=== PATIENT | male | born 1990 | race Caucasian/White ===

== ENCOUNTER 2021-04-22 18:39 | Inpatient (IN) | payer OTHER ==
[~2021-04-22] VITALS: Ht 175.3 cm; Wt 66.4 kg
--- NOTE | 2021-04-22 19:15 | NUR ---
PATIENT C/O ABDOMINAL PAIN FOR THE PAST 3 DAYS WITH DIARRHEA. PATIENT IS HIV +, NEGATIVE OFF MEDICATION FOR ONE YEAR, Hx OF DRUG USE AND METH +. PATIENT IS A/O X 4, RR EVEN AND UNLABORED, NO SIGNS OF SOB NOTED. PATIENT CONNECTED TO CARDIAC AND POX MONITOR.
[2021-04-22] MEDS ORDERED: MORPHINE SULFATE INJ 4 MG/ML DISP.SYRIN ONE (19:21)
[2021-04-22] MEDS ORDERED: ONDANSETRON HCL/PF 4 MG/2 ML VIAL ONE (19:21)
[2021-04-22] MEDS ORDERED: IV NS 0.9% 1,000 ML BAG IV ONE ×3 (19:30→20:30)
[2021-04-22] MEDS ORDERED: MORPHINE SULFATE INJ 2 MG/ML DISP.SYRIN IV ONE (19:30)
[2021-04-22] MEDS ORDERED: ONDANSETRON HCL/PF 4 MG/2 ML VIAL IVP ONE (19:30)
--- NOTE | 2021-04-22 19:36 | NUR ---
CALLED FOR COVID SWAB
[2021-04-22 19:41] LABS: BASOPHILS # (AUTO) 0.1 K/uL (0.0-0.2); BASOPHILS % (AUTO) 0.4 % (0.0-2.0); HEMATOCRIT 45 % (39-51); HEMOGLOBIN 15.9 g/dL (13.5-17.5); LYMPHOCYTES # (AUTO) 1.4 K/uL (0.8-4.8); LYMPHOCYTES % (AUTO) 6.5 % (20.0-44.0); MEAN CORPUSCULAR HGB CONC 35 g/dl (31.0-36.0); MEAN CORPUSCULAR VOLUME 79 fL (80-96); MONOCYTES # (AUTO) 3.7 K/uL (0.1-1.30); MONOCYTES % (AUTO) 16.8 % (2.0-12.0); NEUTROPHILS # (AUTO) 16.8 K/uL (1.8-8.9); NEUTROPHILS % (AUTO) 76.3 % (43.0-81.0); PLATELET COUNT (AUTO) 377 K/uL (150-450); RED BLOOD CELL COUNT(AUTO) 5.71 MIL/uL (4.5-6.0)
--- NOTE | 2021-04-22 19:45 | NUR ---
COVID SWAB COLLECTED AND SENT TO LAB
[2021-04-22 19:56] LABS: CALCIUM, SERUM 8.7 mg/dL (8.5-10.1); CREATININE 1.2 mg/dL (0.6-1.3); POTASSIUM 3.9 mmol/L (3.5-5.1)
[2021-04-22 20:01] LABS: ALBUMIN 3.8 g/dL (3.4-5.0); BILIRUBIN,DIRECT 0.2 mg/dL (0.0-0.2); BILIRUBIN,TOTAL 1.1 mg/dL (0.2-1.0)
[2021-04-22 20:18] LABS: BAND % (MANUAL) 14 % (0.0-5.0); LYMPHOCYTES % (MANUAL) 6 % (16-48); MONOCYTES % (MANUAL) 16 % (0-11.0); NEUTROPHILS % (MANUAL) 63 (42-76); REACTIVE LYMPHOCYTES 1 % (0-0)
--- NOTE | 2021-04-22 20:20 | NUR ---
URINE COLELCTED AND SENT TO LAB
[2021-04-22] MEDS ORDERED: IOHEXOL-300 100 ML VIAL IV ONE (20:24)
[2021-04-22] MEDS ORDERED: IV NS 0.9% 250 ML IV ONE (20:24)
[2021-04-22] MEDS ORDERED: VANCOMYCIN 1 GM in IV D5W 250 ML IV ONE (20:30)
[2021-04-22] MEDS ORDERED: CEFEPIME 1 GM in IV D5W 50 ML IV ONE (20:30)
[2021-04-22 20:51] LABS: BILIRUBIN,URINE MODERATE (NEGATIVE); COLOR,URINE YELLOW (YELLOW); LEUKOCYTE ESTERASE ,URINE Negative (NEGATIVE); NITRITE, URINE Negative (NEGATIVE); PH,URINE 5.5 (5.0-8.0); PROTEIN,URINE 30 mg/dl (NEGATIVE); UGLUCOSE Negative (NEGATIVE); UROBILINOGEN,URINE 0.2 EU/dL (0.2)
[2021-04-22 20:53] LABS: BACTERIA,URINE Rare /HPF (None Seen); RBC,URINE NONE SEEN /HPF (0-2); SQUAMOUS EPITHELIAL CELL,UR Few /HPF (None Seen); WBC,URINE NONE SEEN /HPF (0-3)
[2021-04-22] MEDS ORDERED: CEFEPIME 1 GM VIAL ONE (20:59)
[2021-04-22] MEDS ORDERED: VANCOMYCIN 1 GM VIAL ONE (20:59)
[2021-04-22] MEDS ORDERED: ACETAMINOPHEN ES 500 MG TABLET PO ONE (21:30)
[2021-04-22] MEDS ORDERED: FLAGYL/NS RTU 500 MG/100 ML PIGGYBACK IV ONE (21:30)
[2021-04-22] MEDS ORDERED: ACETAMINOPHEN ES 500 MG TABLET ONE (21:35)
[2021-04-22] MEDS ORDERED: METRONIDAZOLE 500MG/ NS 100ML 100 ML IV ONE (21:43)
[2021-04-22] MEDS ORDERED: LORAZEPAM INJ 2 MG/ML VIAL IV ONE (23:00)
[2021-04-22] MEDS ORDERED: IBUPROFEN 600 MG TABLET PO ONE (23:00)
--- NOTE | 2021-04-22 23:05 | NUR ---
ER DIANNA SPOKE TO ARJUN FUNEZ FROM [facility] REGARDING PT BEING ADMITTED.
--- NOTE | 2021-04-22 23:06 | NUR ---
STOOL SAMPLE COLLECTED, SENT TO LAB.
--- NOTE | 2021-04-22 23:07 | NUR ---
RECIEVED VERBAL FOR ADMISSION
[2021-04-22] MEDS ORDERED: IBUPROFEN 600 MG TABLET ONE (23:19)
[2021-04-22] MEDS ORDERED: LORAZEPAM INJ 2 MG/ML VIAL ONE (23:19)
--- NOTE | 2021-04-22 23:21 | NUR ---
CALLED [facility], PAGED SUPERVISOR PIPELINE MAINTENANCE
[2021-04-23] MEDS ORDERED: Z GUARD REMEDY 2 OZ OINT TP PRN
[2021-04-23] MEDS ORDERED: MAG HYDROX/AL HYDROX/SIMETH 30 ML UDC PO PRN
[2021-04-23] MEDS ORDERED: MAGNESIUM HYDROXIDE 30 ML UDC PO PRN
[2021-04-23] MEDS ORDERED: ZOLPIDEM TARTRATE 5 MG TABLET PO PRN
[2021-04-23] MEDS ORDERED: ONDANSETRON HCL/PF 4 MG/2 ML VIAL IVP PRN
[2021-04-23] MEDS ORDERED: MAG HYDROX/AL HYDROX/SIMETH 30 ML UDC PO ONE (01:00)
--- NOTE | 2021-04-23 02:22 | NUR ---
temp rechecked, resulted 98.9 deg
--- NOTE | 2021-04-23 03:45 | NUR ---
Patient sleeping rouses to loud voice or light touch. VSS. Had large loose watery BM greenish. Bowel sounds hyperactive. Slight tenderness to abdomen. Put in for SS and CM consult d/t homelessness and lack of access to housing, transportation, and mental health services and hx of drug abuse. IVF started. Oriented patient to unit, call light, protocols. Safety measures in place. BSC to bedside because patient is weak can use with assist. Only skin issues are scab to R shoulder and scan to RFA.
--- NOTE | 2021-04-23 03:47 | NUR ---
REPORT GIVEN TO ANKUR DAWSON
[2021-04-23 04:00] VITALS: BP 116/64
--- NOTE | 2021-04-23 04:01 | NUR ---
PATIENT TRANSFERRED UNDER ACLS
[2021-04-23] MEDS: IV D5/ 0.9% NACL 1,000 ML IV SCH ×3 (04:55→15:35)
[2021-04-23] MEDS ORDERED: METRONIDAZOLE 500MG/ NS 100ML 100 ML IV ONE (05:33)
[2021-04-23] MEDS ORDERED: METRONIDAZOLE 500MG/ NS 100ML 500 MG in PREMIX 1 EA IV SCH (06:00)
[2021-04-23 06:16] LABS: BASOPHILS # (AUTO) 0.1 K/uL (0.0-0.2); BASOPHILS % (AUTO) 0.6 % (0.0-2.0); EOSINOPHILS % (AUTO) 0.6 % (0.0-6.0); HEMATOCRIT 42 % (39-51); HEMOGLOBIN 14.9 g/dL (13.5-17.5); LYMPHOCYTES # (AUTO) 1.8 K/uL (0.8-4.8); LYMPHOCYTES % (AUTO) 10.9 % (20.0-44.0); MEAN CORPUSCULAR HGB CONC 36 g/dl (31.0-36.0); MEAN CORPUSCULAR VOLUME 79 fL (80-96); MONOCYTES # (AUTO) 2.6 K/uL (0.1-1.30); MONOCYTES % (AUTO) 16.5 % (2.0-12.0); NEUTROPHILS # (AUTO) 11.4 K/uL (1.8-8.9); NEUTROPHILS % (AUTO) 71.4 % (43.0-81.0); PLATELET COUNT (AUTO) 321 K/uL (150-450); RED BLOOD CELL COUNT(AUTO) 5.29 MIL/uL (4.5-6.0)
[2021-04-23 06:38] LABS: CALCIUM, SERUM 7.6 mg/dL (8.5-10.1); CREATININE 0.8 mg/dL (0.6-1.3); MAGNESIUM 1.5 mg/dL (1.8-2.4); PHOSPHORUS 3.7 mg/dL (2.5-4.9); POTASSIUM 3.5 mmol/L (3.5-5.1)
[2021-04-23 06:49] LABS: THYROID STIMULATING HORMONE 1.036 uIU/mL (0.358-3.74)
--- NOTE | 2021-04-23 07:11 | NUR ---
Patient still sleeping but awakes to light touch or loud name. VSS. Tolerating IV ABX well. Had 2 large watery green BMs. Contact precautions used pending C diff results.
--- NOTE | 2021-04-23 07:15 | NUR ---
RN OPENING NOTE RECEIVED PATIENT IN BED. LETHARGIC. ON ROOM AIR, NO SOB NOTED. IN NO APPARENT DISTRESS. DENIES ANY PAIN OR DISCOMFORT AT THIS TIME. TELE READING SHOWS SR 80s. CURRENTLY ON NPO STATUS. IV ACCESS ON L AC #20 G, AND R AC #18 G, D5NS RUNNING X125 ML/HR, INTACT AND PATENT. SAFETY MEASURES MAINTAINED. BED IN LOWEST POSITION, BRAKES LOCKED. SIDE RAILS UP X2,. CALL LIGHT WITHIN REACH. WILL CONTINUE PLAN OF CARE.
[2021-04-23] MEDS ORDERED: CIPROFLOXACIN IV RTU 400 MG in PREMIX 1 EA IV SCH ×2 (08:00)
[2021-04-23] MEDS: PANTOPRAZOLE 40 MG VIAL IV SCH (08:12)
[2021-04-23 08:21] VITALS: BP 88/60
[2021-04-23] MEDS: Magnesium 1GM/D5W 100ML PREMIX 100 ML IV SCH ×2 (09:38→10:43)
[2021-04-23] MEDS ORDERED: Magnesium 1GM/D5W 100ML PREMIX 100 ML IV SCH (11:00)
[2021-04-23 11:20] LABS: BAND % (MANUAL) 10 % (0.0-5.0); EOSINOPHILS % (MANUAL) 1 % (0-4); LYMPHOCYTES % (MANUAL) 11 % (16-48); MONOCYTES % (MANUAL) 16 % (0-11.0); NEUTROPHILS % (MANUAL) 62 (42-76)
[2021-04-23 12:03] VITALS: BP 92/48
[2021-04-23] MEDS: ZOSYN IVPB 3.375 G in IV D5W 50ml IV SCH ×2 (12:22→17:04)
[2021-04-23] MEDS: VANCOMYCIN 1.25 GM in IV D5W 250 ML IV SCH ×2 (12:22→20:12)
[2021-04-23 16:04] VITALS: BP 107/80
[2021-04-23] MEDS: ENSURE CLEAR 237 ML LIQUID (MIX BERRY) PO SCH (17:09)
--- NOTE | 2021-04-23 18:07 | NUR ---
RN CLOSING NOTE PATIENT IN BED, AWAKE. ON ROOM AIR, SATURATING WELL AT 100 %. NO SOB NOTED. NO S/S OF RESPIRATORY DISTRESS. NO REPORTS OF PAIN OR DISCOMFORT AT THIS TIME. TELE READING SHOWS SR 70 - 80s. IV ACCESS ON L AC #20 G, AND R AC #18 G, D5NS RUNNING X125 ML/HR, INTACT AND PATENT. NO SIGNS OF INFILTRATION. DUE MEDS GIVEN ORDERED. SAFETY MEASURES MAINTAINED. BED IN LOWEST POSITION, BRAKES LOCKED. SIDE RAILS UP X2. KEPT CALL LIGHT WITHIN REACH. WILL ENDORSE CONTINUITY OF CARE TO ONCOMING SHIFT.
[2021-04-23] MEDS: MORPHINE SULFATE INJ 2 MG/ML DISP.SYRIN IV PRN (18:14)
[2021-04-23 20:00] VITALS: BP 105/58
--- NOTE | 2021-04-23 20:00 | NUR ---
WASTE MACHINE OPERATOR OPENING NOTES PT RESTING IN BED, ALERT/ORIENTED X 4, ABLE TO MAKE NEEDS KNOWN. PATIENT STATING HE'S REALLY HUNGRY AND WANTS TO EAT FOOD. PT STABLE ON RA, NO S/S OF DISTRESS OR SOB NOTED, BREATHING EVEN AND UNLABORED. NO REPORTS OF PAIN OR DISCOMFORT AT THIS TIME. PT ON TELE MONITORING, READING SHOWS SINUS TACHY, HR 102. IV ACCESS ON LEFT AC #20G INTACT AND RUNNING D5NS @ 125 ML/HR, RIGHT AC #18G INTACT AND SALINE LOCKED. SAFETY MEASURES IN PLACE: CALL LIGHT WITHIN REACH, BED LOCKED IN LOW POSITION, SIDE RAILS UP X 2. WILL CONTINUE TO MONITOR PATIENT
--- NOTE | 2021-04-23 20:20 | NUR ---
NEWSPAPER COLUMNIST NOTES PT SEEN BY DR. MACKEY AT BEDSIDE WITH NEW ORDER TO ADVANCE DIET TOLERATED. PATIENT STATED HE'S REALLY HUNGRY AND WANTS TO EAT FOOD. DR. MACKEY SAID IT'S OKAY TO GIVE PATIENT SANDWICH. WILL CONTINUE TO MONITOR PATIENT FOR FOOD TOLERANCE. VANCO WAS ALSO DISCONTINUED SO I STOPPED THE BAG OF VANCO THAT WAS RUNNING
[2021-04-23] MEDS: METRONIDAZOLE 500MG/ NS 100ML 500 MG in PREMIX 1 EA IV SCH (21:18)
[2021-04-23] MEDS: CIPROFLOXACIN IV RTU 400 MG in PREMIX 1 EA IV SCH (22:44)
[2021-04-23] MEDS: ACETAMINOPHEN 325 MG TABLET PO PRN (23:53)
--- NOTE | 2021-04-23 23:55 | NUR ---
ENGINEERING FACULTY NOTES PATIENT COMPLAINING OF HEADACHE, TYLENOL 650 MG GIVEN ORDERED. WILL CONTINUE TO MONITOR PATIENT
[2021-04-24] VITALS: BP 90/54
[2021-04-24] MEDS: IV D5/ 0.9% NACL 1,000 ML IV SCH ×3 (00:40→15:35)
[2021-04-24 04:00] VITALS: BP 111/52
[2021-04-24] MEDS: METRONIDAZOLE 500MG/ NS 100ML 500 MG in PREMIX 1 EA IV SCH ×3 (05:21→21:17)
--- NOTE | 2021-04-24 05:30 | NUR ---
MACHINE ENGINEER NOTES PATIENT REFUSED LABS, STATED HE WANTED TO SLEEP AND TO COME BACK LATER. LAB WILL COME BACK LATER TO TAKE LABS
--- NOTE | 2021-04-24 07:38 | NUR ---
CEMENT MASON CLOSING NOTES PATIENT SLEEPING IN BED, PT REMAINED STABLE THROUGHOUT SHIFT. NO S/S OF DISTRESS OR SOB NOTED, BREATHING EVEN AND UNLABORED. MEDICATIONS GIVEN ORDERED, PT NEEDS MET THROUGHOUT SHIFT. PATIENT TOLERATED SANDWICH AND APPLE SAUCE LAST NIGHT, NO NAUSEA, ABDOMINAL PAIN OR DIARRHEA AFTER EATING, ADVANCE DIET TOLERATED. PT HAD ONLY 2 EPISODES OF SOFT/LOOSE GREEN BM. PATIENT ON TELE MONITORING, SINUS RHYTHM. SAFETY MEASURES IN PLACE: CALL LIGHT WITHIN REACH, BED LOCKED IN LOW POSITION, SIDE RAILS UP X 2. WILL ENDORSE TO DAY SHIFT NURSE FOR CONTINUITY OF CARE
--- NOTE | 2021-04-24 08:00 | NUR ---
CONCRETE SWIMMING POOL INSTALLER OPENING NOTE: RECEIVED PATIENT LYING IN BED, RESTING. EASY TO AROUSE. A/O X4. STABLE ON ROOM AIR - NO SOB NOTED. NO DISTRESS/DISCOMFORT NOTED. ON TELE MONITOR - READS SINUS RHYTHM. IV ACCESS TO LEFT AC #18 AND RIGHT AC #18 - BOTH INTACT AND PATENT, LAC RUNNING D5NS @ 125ML/HR. SAFETY MEASURES IN PLACE. CALL LIGHT WITHIN REACH. WILL CONTINUE TO MONITOR.
[2021-04-24] MEDS: PANTOPRAZOLE 40 MG VIAL IV SCH (08:41)
[2021-04-24] MEDS: ENSURE CLEAR 237 ML LIQUID (MIX BERRY) PO SCH ×3 (08:42→16:15)
[2021-04-24] MEDS: CIPROFLOXACIN IV RTU 400 MG in PREMIX 1 EA IV SCH ×2 (09:17→22:28)
[2021-04-24] MEDS: ACETAMINOPHEN 325 MG TABLET PO PRN (12:24)
[2021-04-24 15:42] LABS: CALCIUM, SERUM 7.5 mg/dL (8.5-10.1); CREATININE 0.8 mg/dL (0.6-1.3); MAGNESIUM 1.8 mg/dL (1.8-2.4); POTASSIUM 3.7 mmol/L (3.5-5.1)
[2021-04-24 15:58] VITALS: BP 103/54
--- NOTE | 2021-04-24 18:44 | NUR ---
PHOTOGRAMMETRIC STEREO COMPILER CLOSING NOTE PATIENT CURRENTLY LYING IN BED, RESTING. EASY TO AROUSE. A/O X4. STABLE ON ROOM AIR - NO SOB NOTED. NO DISTRESS/DISCOMFORT NOTED. ON TELE MONITOR - READS SINUS RHYTHM. IV ACCESS TO LEFT AC #18 - INTACT AND PATENT - RUNNING D5NS @ 125ML/HR. SAFETY MEASURES IN PLACE. CALL LIGHT WITHIN REACH. WILL ENDORSE TO GOODS LAYER NURSE FOR RAÚL.
--- NOTE | 2021-04-24 19:30 | NUR ---
DIESEL ENGINE FITTER OPENING NOTES RECEIVED PATIENT ON BED, AWAKE, A/O X4. ON ROOM AIR. WITH NO SIGNS OF SOB NOTED. NOT IN DISTRESS. WITH IV ACCESS AT LEFT AC G20 WITH IVF OF D5NS @ 125ML/HR, PATENT AND INTACT. ON TELE MONITOR, READS SINUS RHYTHM AT 76BPM. SAFETY MEASURES IN PLACED. CALL LIGHT WITHIN REACH. BED ON LOWEST, LOCKED POSITION. SIDE RAILS UP X2. WILL CONTINUE TO MONITOR.
[2021-04-24 20:00] VITALS: BP 96/45
[2021-04-24] MEDS: MORPHINE SULFATE INJ 2 MG/ML DISP.SYRIN IV PRN (21:19)
--- NOTE | 2021-04-24 21:33 | NUR ---
VIDEOTAPE OPERATOR NOTES PATIENT REPORTED PAIN ON BOTH UPPER LEFT AND RIGHT ABDOMINAL AREA WITH THE SCALE OF 9/10. PAIN MEDS GIVEN.
[2021-04-25] VITALS: BP 101/51
[2021-04-25] MEDS: IV D5/ 0.9% NACL 1,000 ML IV SCH ×2 (03:20→07:35)
[2021-04-25 04:00] VITALS: BP 102/57
[2021-04-25] MEDS: METRONIDAZOLE 500MG/ NS 100ML 500 MG in PREMIX 1 EA IV SCH (05:47)
[2021-04-25] MEDS: MORPHINE SULFATE INJ 2 MG/ML DISP.SYRIN IV PRN (05:56)
--- NOTE | 2021-04-25 05:56 | NUR ---
SOAP INSPECTOR NOTES PATIENT ON PAIN AT THE SCALE OF 8/10. MORPHINE SULFATE 2MG GIVEN THROUGH IV PRN MEDS FOR PAIN. WILL CONTINUE TO MONITOR.
--- NOTE | 2021-04-25 06:23 | NUR ---
BELLHOP CAPTAIN CLOSING NOTES PATIENT ON BED, AWAKE, A/O X4. STABLE ON ROOM AIR - NO SOB NOTED. NO DISTRESS/DISCOMFORT NOTED. ON TELE MONITOR - READS SINUS RHYTHM AT 62BPM. IV ACCESS TO LEFT AC #20, INTACT AND PATENT WITH IVF OF D5NS @ 125ML/HR. SAFETY MEASURES IN PLACED. CALL LIGHT WITHIN REACH. BED ON LOWEST, LOCKED POSITION. WILL ENDORSE TO NEXT SHIFT NURSE FOR RAÚL.
[2021-04-25 06:41] LABS: BASOPHILS # (AUTO) 0.1 K/uL (0.0-0.2); BASOPHILS % (AUTO) 1.2 % (0.0-2.0); EOSINOPHILS % (AUTO) 3.8 % (0.0-6.0); HEMATOCRIT 36 % (39-51); HEMOGLOBIN 12.9 g/dL (13.5-17.5); LYMPHOCYTES # (AUTO) 1.9 K/uL (0.8-4.8); LYMPHOCYTES % (AUTO) 24.3 % (20.0-44.0); MEAN CORPUSCULAR HGB CONC 36 g/dl (31.0-36.0); MEAN CORPUSCULAR VOLUME 80 fL (80-96); MONOCYTES # (AUTO) 1.3 K/uL (0.1-1.30); MONOCYTES % (AUTO) 16.4 % (2.0-12.0); NEUTROPHILS # (AUTO) 4.3 K/uL (1.8-8.9); NEUTROPHILS % (AUTO) 54.3 % (43.0-81.0); PLATELET COUNT (AUTO) 303 K/uL (150-450); WHITE BLOOD COUNT (AUTO) 7.8 K/uL (4.3-11.0)
[2021-04-25 07:06] LABS: *BASOS 1 % (Not Estab.); *BASOS, ABSOLUTE 0.1 x10E3/uL (0.0-0.2); *EOS 3 % (Not Estab.); *EOS, ABSOLUTE 0.3 x10E3/uL (0.0-0.4); *HCT 39.5 % (37.5-51.0); *HGB 13.2 g/dL (13.0-17.7); *IMMATURE GRANULOCYTES 1 % (Not Estab.); *IMMATURE GRANULOCYTES(ABS) 0.1 x10E3/uL (0.0-0.1); *LYMPHOCYTES 19 % (Not Estab.); *LYMPHS, ABSOLUTE 1.9 x10E3/uL (0.7-3.1); *MCH 27.3 pg (26.6-33.0); *MCHC 33.4 g/dL (31.5-35.7); *MCV 82 fL (79-97); *MONOCYTES 13 % (Not Estab.); *MONOS, ABSOLUTE 1.3 x10E3/uL (0.1-0.9); *NEUTROPHILS 63 % (Not Estab.); *NEUTROPHILS, ABSOLUTE 6.4 x10E3/uL (1.4-7.0); *PLT 308 x10E3/uL (150-450); *RBC 4.83 x10E6/uL (4.14-5.80); *RDW 13.9 % (11.6-15.4)
--- NOTE | 2021-04-25 07:21 | NUR ---
GAMEWELL OPERATOR OPENING NOTES RECEIVED PATIENT RESTING IN BED, AWAKE, A/O X4. PATIENT IS BREATHING EVENLY AND NONLABORED ON ROOM AIR. WITH NO SIGNS OF SOB NOTED. NOT IN DISTRESS. PATIENT NOTED WITH IV ACCESS AT LEFT AC G20 WITH IVF OF D5NS @ 125ML/HR, PATENT AND INTACT. PATIENT IS ON TELE MONITOR, READS SINUS RHYTHM AT 78 BPM. SAFETY MEASURES IN PLACED. CALL LIGHT WITHIN REACH. BED ON LOWEST, LOCKED POSITION. SIDE RAILS UP X2. WILL CONTINUE TO MONITOR.
[2021-04-25 07:50] LABS: EOSINOPHILS % (MANUAL) 1 % (0-4); LYMPHOCYTES % (MANUAL) 24 % (16-48); MONOCYTES % (MANUAL) 17 % (0-11.0); NEUTROPHILS % (MANUAL) 58 (42-76)
[2021-04-25 07:55] LABS: CALCIUM, SERUM 7.6 mg/dL (8.5-10.1); CREATININE 0.7 mg/dL (0.6-1.3); POTASSIUM 3.9 mmol/L (3.5-5.1)
[2021-04-25 08:00] VITALS: BP 103/59
[2021-04-25] MEDS: ENSURE CLEAR 237 ML LIQUID (MIX BERRY) PO SCH (08:13)
[2021-04-25] MEDS: PANTOPRAZOLE 40 MG VIAL IV SCH (08:13)
[2021-04-25] MEDS ORDERED: LEVO500T90 PO (08:36)
[2021-04-25] MEDS: CIPROFLOXACIN IV RTU 400 MG in PREMIX 1 EA IV SCH (09:10)
--- NOTE | 2021-04-25 10:38 | NUR ---
SALESPERSON YARD GOODS NOTE RECEIVED ORDER FOR DISCHARGE. PATIENT IS A/O X4 AMBULATORY. PATIENT IS BREATHING EVENLY AND NONLABORED ON ROOM AIR. PATIENT WAS GIVEN DISCHARGE INSTRUCTIONS BOTH VERBALLY AND IN WRITTEN FORM. PATIENT VERBALIZED UNDERSTANDING. PATIENT WAS ALSO GIVEN INSTRUCTIONS REGARDING HOMELESS SHELTERS AND OTHER OPTIONS AVAILABLE. PATIENT VERBALIZED UNDERSTANDING. PATIENT REFUSED PHOTOS TO BE TAKEN. PATIENT'S IV ACCESS WAS REMOVED CATHETER TIP INTACT AND PRESSURE DRESSING APPLIED. ID BAND REMOVED. PATIENT WAS GIVEN CLOTHES AND ALL BELONGINGS ACCOUNTED FOR. BELONGINGS IN SAFE GIVEN UPON EXITING THE HOSPITAL. PATIENT LEFT IN STABLE CONDITION AMBULATING.
[2021-04-25] MEDS ORDERED: METRONIDAZOLE 500 MG TABLET PO SCH (13:00)
[2021-04-25] MEDS ORDERED: CIPROFLOXACIN HCL 500 MG TABLET PO SCH (21:00)
[2021-04-26 09:07] LABS: *% CD 4 POS. LYMPH 8.8 % (30.8-58.5); *ABSOLUTE CD 4 HELPER 167 /uL (359-1519); *ABSOLUTE CD 8 SUPPRESSOR 1026 /uL (109-897); *CD4/CD8 RATIO 0.16 (0.92-3.72)
== END 2021-04-25 10:40 | disposition home or self-care (01) | DRG 892 ==
LOC: ER 18:44 → TELE 04-23 03:45
PROVIDERS: ADMIT Student in an Organized Health Care Education/Training Program; ATTEND Internal Medicine
DX: A41.9 Sepsis, unspecified organism (principal); B20 Human immunodeficiency virus [HIV] disease; E87.1 Hypo-osmolality and hyponatremia; K51.00 Ulcerative (chronic) pancolitis without complications; A09 Infectious gastroenteritis and colitis, unspecified; Z20.822 Contact with and (suspected) exposure to COVID-19; Z91.19 Patient's noncompliance with other medical treatment and regimen; Z59.0 Homelessness; F19.10 Other psychoactive substance abuse, uncomplicated
CPT/HCPCS: 36415; 71045-TC; 80048-TC; 80061-TC; 80076-TC; 81001; 83605-TC; 83690-TC; 83735-TC; 84100-TC; 84443-TC; 85025-TC; 86360; 87040-TC; 87045-TC; 87081-TC; 87186-TC; A4216; C9113; C9803; G0378; G0480; J0692; J0744; J2060; J2270; J2405; J2543; J3370; J3475; J7030; J7042; J7050; J7060; Q9967